=== PATIENT | male | born 2000 | race Two or more races ===

== ENCOUNTER 2023-08-19 22:46 | Emergency (ER) | payer BC ==
[~2023-08-19] VITALS: Ht 188 cm; Wt 90.6 kg
[2023-08-20] MEDS ORDERED: PRED1SUS4 OP (02:42)
[2023-08-20] MEDS ORDERED: [UNRECOGNIZED DRUG - CODE] OP (02:42)
[2023-08-20 02:51] VITALS: BP 149/80; PULSE 89; RESP 20; TEMP 98.4; O2SAT 98
== END 2023-08-20 02:50 | disposition home or self-care (01) ==
LOC: ER 22:46
DX: S05.01XA Injury of conjunctiva and corneal abrasion without foreign body, right eye, initial encounter (principal); H21.01 Hyphema, right eye; H57.11 Ocular pain, right eye; Z88.1 Allergy status to other antibiotic agents; X58.XXXA Exposure to other specified factors, initial encounter; Y93.89 Activity, other specified; Y92.89 Other specified places as the place of occurrence of the external cause; Y99.8 Other external cause status
CPT/HCPCS: 70480